=== PATIENT | female | born 1970 | race Hispanic/Latino ===

== ENCOUNTER 2018-07-19 13:31 | Emergency (ER) | payer OTHER ==
--- OUTSIDE RECORDS SUMMARY | 2018-07-19 13:33 | XMS REPORT | Clinical Summary ---
:1970 Author Organization [facility] Address [address] [place] [address] Care Team Providers Name Role Phone Kwabena Blas MD Primary Care Provider Allergies Active Allergy Reactions Severity Noted Date Comments Codeine Palpitations High 11/15/2016 Medications Medication Sig Dispensed Refills Start Date End Date Status atenolol (TENORMIN) 50 MG TK 1 T PO 0 10/28/2016 Active tablet BID fluconazole (DIFLUCAN) 150 0 09/11/2016 Active MG tablet hydroCHLOROthiazide TK 1 T PO QD 2 11/08/2016 Active (HYDRODIURIL) 25 MG tablet traMADol (ULTRAM) 50 mg TK 1 T PO 0 10/25/2016 Active tablet BID Active Problems Problem Noted Date Chest pain 12/10/2016 Abnormal EKG 12/10/2016 Essential hypertension 11/15/2016 Palpitation 11/15/2016 Family History Medical History Relation Name Comments Diabetes Father Hypertension Father No Known Problems Maternal Grandfather No Known Problems Maternal Grandmother Heart failure Mother Hypertension Mother No Known Problems Paternal Grandfather No Known Problems Paternal Grandmother Relation Name Status Comments Brother Alive Father Alive Maternal Grandfather Maternal Grandmother Mother Alive Paternal Grandfather Paternal Grandmother Sister Alive Social History Tobacco Use Types Packs/Day Years Used Date Never Smoker Smokeless Tobacco: Never Used Alcohol Use Drinks/Week oz/Week Comments No Sex Assigned at Date Recorded Not on file Job Start Date Occupation Industry Not on file Not on file Not on file Travel History Travel Start Travel End No recent travel history available. Last Filed Vital Signs Not on file Plan of Treatment Health Maintenance Due Date Last Done Comments CERVICAL CANCER SCREENING 1993 INFLUENZA VACCINE 02/25/2018 Results Not on fileafter 07/18/2017 Insurance Payer Benefit Plan / Group Subscriber ID Type Phone Address AETNA AETNA HMO,POS,EPO, MC/EC xxxxxxxxxx HMO Advance Directives Patient has advance care planning documents on file. For more information, please contact:Facundo Brasher[address] [place] [address]
[2018-07-19] MEDS ORDERED: NA CHLORIDE 0.9% 1,000 ML ONE (15:13)
[2018-07-19 15:34] LABS: Absolute Monocytes 0.7 K/uL (0.1-1.3); Absolute Neutrophil 8.6 K/uL (1.8-8.0); Basophils % 0.6 % (0-1.3); Eosinophils % 0.6 % (0-4.4); Hematocrit 36.9 % (36.0-45.0); Lymphocytes % 24.2 % (15.3-44.8); MCH 26.1 pg (27.0-35.0); MCV 78.4 fL (80-100); MPV 9.3 fL (7.6-11.3); Monocytes % 5.9 % (3.3-12.3); RBC Red Blood Cell Count 4.71 M/uL (3.86-4.86)
[2018-07-19 15:37] LABS: ALT/SGPT 21 U/L (12-78); AST/SGOT 12 U/L (15-37); Albumin 3.3 g/dL (3.4-5.0); Alkaline Phosphatase 77 U/L (45-117); BUN Blood Urea Nitrogen 11 mg/dL (7-18); Bicarbonate 28 mmol/L (21-32); Bilirubin Direct < 0.1 mg/dL (0-0.2); Bilirubin Total 0.3 mg/dL (0.2-1.0); Glucose Level 100 mg/dL (74-106); Lipase 195 U/L (73-393); Potassium 3.1 mmol/L (3.5-5.1); Protein, Total 7.5 g/dL (6.4-8.2); Sodium Level 136 mmol/L (136-145)
[2018-07-19] MEDS ORDERED: KETOROLAC 30 MG/ML INJ ONE (15:52)
[2018-07-19] MEDS ORDERED: POTASSIUM 25 MEQ EFFERV TAB ONE (15:52)
--- NOTE | 2018-07-19 16:58 | RAD REPORT ---
EXAM DESCRIPTION: CT - Stone Protocol - 07/19/2018 3:25 pm CLINICAL HISTORY: Flank pain. FLANK PAIN COMPARISON: No comparisons TECHNIQUE: Axial images were obtained without oral or IV contrast. Lack of contrast limits solid org an and vascular assessment. The [id number] spans the entirety of the system partially obscuring uppermost abdomen and lung bases. Coronal reformatted images were obtained and reviewed. All CT scans are performed using dose optimization technique as appropriate and may include automated exposure control or mA/KV adjustment according to patient size. FINDINGS: The lower lung frost are clear. Imaged portions of the liver and spleen show no suspicious findings on non-contrast imaging. The panc reas and adrenal glands are normal. No pathologic lymphadenopathy in the abdomen or pelvis. No urinary tract stones or obstructive uropathy. No bowel obstruction, free air, free fluid or abscess. Normal appendix noted.Small to moderate fat an d fluid containing umbilical hernia noted. No significant bony abnormality. IMPRESSION: No urinary tract stones or obstructive uropathy. Moderate fat and fluid containing umbilical hernia.
--- NOTE | 2018-07-19 17:35 | ER ---
Nurse's Notes [facility] Name: Danii Linares Age: 47 yrs Sex: Female : 1970 Arrival Date: 07/19/2018 Time: 13:34 Bed 6 Private MD: Noemy Blas F Diagnosis: Low back pain Presentation: 07/19 13:51 Presenting complaint: Child states: She has been having a lot of back pain with la1 "shocks" for the last week. The pain radiates to her stomach. She has had this problem in the past and this is similar, they usually give her tramadol but this feels worse than usual. Transition of care: patient was not received from another setting of care. Onset of symptoms was July 19, 2018. Risk Assessment: Do you want to hurt yourself or someone else? Patient reports no desire to harm self or others. Initial Sepsis Screen: Does the patient meet any 2 criteria? No. Patient's initial sepsis screen is negative. Does the patient have a suspected source of infection? No. Patient's initial sepsis screen is negative. Care prior to arrival: None. 13:51 Method Of Arrival: Ambulatory la1 13:51 Acuity: KARINA 3 la1 Triage Assessment: 14:45 General: Appears in no apparent distress. uncomfortable, Behavior is calm, cooperative, hj appropriate for age. Pain: Complains of pain in back. Musculoskeletal: Circulation, motion, and sensation intact. Capillary refill < 3 seconds. 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 - Social history:: Smoking status: Patient/guardian denies using tobacco. - Ebola Screening: : No symptoms or risks identified at this time. Screenin:45 Abuse screen: Denies threats or abuse. Denies injuries from another. Nutritional hj screening: No deficits noted. Tuberculosis screening: No symptoms or risk factors identified. Fall Risk None identified. Vital Signs: 13:54 Pulse 81; Resp 16; Temp 97.5; Pulse Ox 98% on R/A; Weight 117.93 kg; Height 5 ft. 0 in. la1 (152.40 cm); 13:56 BP 131 / 77; la1 16:29 BP 126 / 74; Pulse 80; Resp 18; Pulse Ox 99% on R/A; hj 16:57 BP 130 / 70; Pulse 78; Resp 18; Pulse Ox 100% on R/A; hj 17:56 BP 128 / 68; Pulse 75; Resp 18; Pulse Ox 99% on R/A; hj 13:54 Body Mass Index 50.78 (117.93 kg, 152.40 cm) la1 ED Course: 13:34 Patient arrived in ED. mr 13:34 Noemy Blas MD is Private Physician. mr 13:53 Triage completed. la1 13:53 Arm band placed on right wrist. la1 14:39 Mika Mckeon, SAWYER is Primary Nurse. hj 14:42 Aguilar Lau NP is PHCP. pm1 14:42 Ari Addison MD is Attending Physician. pm1 14:45 Patient has correct armband on for positive identification. Placed in gown. Bed in low hj position. Call light in reach. Side rails up X 1. Adult w/ patient. 14:47 Urine collected: clean catch specimen, cloudy, dane colored. jb1 15:06 Inserted saline lock: 22 gauge in left antecubital area, using aseptic technique. Blood hj collected. 15:25 CT Stone Protocol In Process Unspecified. EDMS 17:56 No provider procedures requiring assistance completed. IV discontinued, intact, hj bleeding controlled, No redness/swelling at site. Pressure dressing applied. Administered Medications: 15:06 Drug: NS 0.9% 1000 ml Route: IV; Rate: 1000 ml; Site: left antecubital; hj 17:30 Follow up: IV Status: Completed infusion; IV Intake: 1000ml hj 15:40 Drug: Potassium Effervescent Tablet 50 mEq Route: PO; hj 16:57 Follow up: Response: No adverse reaction hj 15:40 Drug: TORadol 30 mg Route: IVP; Site: left antecubital; 16:57 Follow up: Response: No adverse reaction; Pain is decreased Intake: 17:30 IV: 1000ml; Total: 1000ml. Outcome: 17:34 Discharge ordered by . pm1 17:56 Discharged to home ambulatory, with family. 17:56 Condition: stable 17:56 Discharge instructions given to patient, family, Instructed on discharge instructions, follow up and referral plans. medication usage, Demonstrated understanding of instructions, follow-up care, medications, Prescriptions given X 2. 17:57 Patient left the ED. Signatures: Dispatcher [employer] EDMS Krishna López1 Olive Schaeffer mr Sohan Gonzalez RN RN la1 Mika Mckeon RN RN Aguilar Sierra, INSPECTOR REPAIRER INSPECTOR REPAIRER pm1
--- NOTE | 2018-07-19 17:35 | EDPHYS ---
Physician Documentation [facility] Name: Danii Linares Age: 47 yrs Sex: Female : 1970 Arrival Date: 07/19/2018 Time: 13:34 Bed 6 Private MD: Noemy Blas F ED Physician Ari Addison HPI: 07/19 15:15 This 47 yrs old Female presents to ER via Ambulatory with complaints of Back pm1 Pain. 15:15 The patient presents with pain. The symptoms are located in the right low back. Onset: pm1 The symptoms/episode began/occurred 2 week(s) ago. The pain radiates to the right lower quadrant. Associated signs and symptoms: Pertinent negatives: chest pain, dysuria, fever, headache, nausea, numbness, tingling, weakness. The problem was sustained without known cause. Modifying factors: The patient symptoms are alleviated by nothing, the patient symptoms are aggravated by bending, movement. Severity of symptoms: in the emergency department the symptoms are actually worse. The patient has experienced similar episodes in the past, multiple times, but today's symptoms are worse, more painful. The patient has not recently seen a physician. 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 - Social history:: Smoking status: Patient/guardian denies using tobacco. - Ebola Screening: : No symptoms or risks identified at this time. ROS: 15:15 Constitutional: Negative for fever, chills, and weight loss, Eyes: Negative for injury, pm1 pain, redness, and discharge, ENT: Negative for injury, pain, and discharge, Neck: Negative for injury, pain, and swelling, Cardiovascular: Negative for chest pain, palpitations, and edema, Respiratory: Negative for shortness of breath, cough, wheezing, and pleuritic chest pain, Abdomen/GI: Negative for abdominal pain, nausea, vomiting, diarrhea, and constipation. 15:15 : Negative for injury, bleeding, discharge, and swelling, MS/Extremity: Negative for injury and deformity, Skin: Negative for injury, rash, and discoloration, Neuro: Negative for headache, weakness, numbness, tingling, and seizure. 15:15 Back: Positive for pain with movement, of the right low back, pain. Exam: 15:15 Constitutional: This is a well developed, well nourished patient who is awake, alert, pm1 and in no acute distress. Head/Face: Normocephalic, atraumatic. Eyes: Pupils equal round and reactive to light, extra-ocular motions intact. Lids and lashes normal. Conjunctiva and sclera are non-icteric and not injected. Cornea within normal limits. Periorbital areas with no swelling, redness, or edema. ENT: Nares patent. No nasal discharge, no septal abnormalities noted. Tympanic membranes are normal and external auditory canals are clear. Oropharynx with no redness, swelling, or masses, exudates, or evidence of obstruction, uvula midline. Mucous membranes moist. Neck: Trachea midline, no thyromegaly or masses palpated, and no cervical lymphadenopathy. Supple, full range of motion without nuchal rigidity, or vertebral point tenderness. No Meningismus. Chest/axilla: Normal chest wall appearance and motion. Nontender with no deformity. No lesions are appreciated. Cardiovascular: Regular rate and rhythm with a normal S1 and S2. No gallops, murmurs, or rubs. Normal PMI, no JVD. No pulse deficits. Respiratory: Lungs have equal breath sounds bilaterally, clear to auscultation and percussion. No rales, rhonchi or wheezes noted. No increased work of breathing, no retractions or nasal flaring. Abdomen/GI: Soft, non-tender, with normal bowel sounds. No distension or tympany. No guarding or rebound. No evidence of tenderness throughout. 15:15 Skin: Warm, dry with normal turgor. Normal color with no rashes, no lesions, and no evidence of cellulitis. MS/ Extremity: Pulses equal, no cyanosis. Neurovascular intact. Full, normal range of motion. 15:15 Back: pain, of the right low back, ROM is painful, with rotation to the right, with rotation to the left, with flexion, with extension, normal spinal alignment noted, vertebral tenderness, is not appreciated. 15:15 Neuro: Orientation: is normal, Motor: is normal, moves all fours, Gait: is steady, at a normal pace, without difficulty. Vital Signs: 13:54 Pulse 81; Resp 16; Temp 97.5; Pulse Ox 98% on R/A; Weight 117.93 kg; Height 5 ft. 0 in. la1 (152.40 cm); 13:56 BP 131 / 77; la1 16:29 BP 126 / 74; Pulse 80; Resp 18; Pulse Ox 99% on R/A; hj 16:57 BP 130 / 70; Pulse 78; Resp 18; Pulse Ox 100% on R/A; hj 17:56 BP 128 / 68; Pulse 75; Resp 18; Pulse Ox 99% on R/A; hj 13:54 Body Mass Index 50.78 (117.93 kg, 152.40 cm) la1 MDM: 14:42 Patient medically screened. pm1 17:33 Data reviewed: vital signs. Data interpreted: Pulse oximetry: on room air is 100 %. pm1 Interpretation: normal. Counseling: I had a detailed discussion with the patient and/or guardian regarding: the historical points, exam findings, and any diagnostic results supporting the discharge/admit diagnosis, lab results, radiology results, the need for outpatient follow up, to return to the emergency department if symptoms worsen or persist or if there are any questions or concerns that arise at home. 07/19 14:50 Order name: Urine Dipstick--Ancillary (enter results) ag 07/19 14:50 Order name: Urine --Ancillary (enter results) ag 07/19 14:52 Order name: Basic Metabolic Panel; Complete Time: 15:39 pm1 07/19 14:52 Order name: CBC with Diff; Complete Time: 15:39 pm1 07/19 14:52 Order name: Creatinine for Radiology; Complete Time: 15:39 pm1 07/19 14:52 Order name: Hepatic Function; Complete Time: 15:39 pm1 07/19 14:52 Order name: CT Stone Protocol; Complete Time: 17:07 pm1 07/19 14:52 Order name: Lipase; Complete Time: 15:39 pm1 07/19 14:52 Order name: IV Saline Lock; Complete Time: 15:06 pm1 07/19 14:52 Order name: Labs collected and sent; Complete Time: 15:06 pm1 Administered Medications: 15:06 Drug: NS 0.9% 1000 ml Route: IV; Rate: 1000 ml; Site: left antecubital; hj 17:30 Follow up: IV Status: Completed infusion; IV Intake: 1000ml 15:40 Drug: Potassium Effervescent Tablet 50 mEq Route: PO; hj 16:57 Follow up: Response: No adverse reaction hj 15:40 Drug: TORadol 30 mg Route: IVP; Site: left antecubital; hj 16:57 Follow up: Response: No adverse reaction; Pain is decreased Disposition: 07/19/18 17:34 Discharged to Home. Impression: Low back pain. - Condition is Stable. - Discharge Instructions: Back Pain, Adult, Musculoskeletal Pain. - Prescriptions for Naprosyn 500 mg Oral Tablet - take 1 tablet by ORAL route 2 times per day As needed take with food; 30 tablet. Cyclobenzaprine 10 mg Oral Tablet - take 1 tablet by ORAL route every 8 hours As needed; 30 tablet. - Medication Reconciliation Form, Thank You Letter, Antibiotic Education, Prescription Opioid Use form. - Follow up: Emergency Department; When: As needed; Reason: Worsening of condition. Follow up: Private Physician; When: 2 - 3 days; Reason: Recheck today's complaints, Continuance of care, Re-evaluation by your physician. - Problem is new. - Symptoms have improved. Signatures: Dispatcher [employer] [facility] Sohan Gonzalez RN RN la1 Mika Mckeon RN RN Aguilar Lau, MARIYA BATTING MACHINE OPERATOR INSULATION pm1 Corrections: (The following items were deleted from the chart) 17:57 17:34 07/19/2018 17:34 Discharged to Home. Impression: Low back pain. Condition is hj Stable. Forms are Medication Reconciliation Form, Thank You Letter, Antibiotic Education, Prescription Opioid Use. Follow up: Emergency Department; When: As needed; Reason: Worsening of condition. Follow up: Private Physician; When: 2 - 3 days; Reason: Recheck today's complaints, Continuance of care, Re-evaluation by your physician. Problem is new. Symptoms have improved. pm1
[2018-07-19 18:20] VITALS: TEMP 97.5
[2018-07-19 18:26] VITALS: BP 128/68; O2SAT 99
[2018-07-19 20:37] LABS: Urine Blood TRACE (NEG); Urine Glucose NEGATIVE (NEG); Urine Protein NEGATIVE (NEG)
== END 2018-07-19 17:57 | disposition home or self-care (01) ==
LOC: ER 13:31
DX: M54.5 Low back pain (principal); I10 Essential (primary) hypertension; Z88.5 Allergy status to narcotic agent
CPT/HCPCS: 36415; 74176; 76377; 80048; 80076; 81003; 81025; 83690; 85025; 96361; 96374; 99284; J7030

== ENCOUNTER 2018-08-24 15:01 | Emergency (ER) | payer BC ==
--- OUTSIDE RECORDS SUMMARY | 2018-08-24 15:03 | XMS REPORT | Clinical Summary ---
:1970 Author Organization [facility] Address [address] [place] [address] Care Team Providers Name Role Phone Kwabena [...] INFLUENZA VACCINE 02/25/2018 Results Not on fileafter 08/23/2017 Insurance Payer Benefit Plan / Group Subscriber ID Type Phone Address AETNA AETNA HMO,POS,EPO, MC/EC xxxxxxxxxx HMO Advance Directives Patient has advance care planning documents on file. For more information, please contact:Facundo Brasher[address] [place] [address]
[2018-08-24 15:49] LABS: Absolute Lymphocytes (CBC) 2.3 K/uL (0.7-4.9); Absolute Monocytes 0.5 K/uL (0.1-1.3); Absolute Neutrophil 7.7 K/uL (1.8-8.0); Basophils % 0.6 % (0-1.3); Eosinophils % 1.1 % (0-4.4); Hematocrit 38.8 % (36.0-45.0); Lymphocytes % 21.7 % (15.3-44.8); MPV 9.2 fL (7.6-11.3); Monocytes % 4.9 % (3.3-12.3); Protime INR 1.04; RBC Red Blood Cell Count 4.88 M/uL (3.86-4.86)
[2018-08-24 15:58] LABS: ALT/SGPT 22 U/L (12-78); AST/SGOT 15 U/L (15-37); Albumin 3.5 g/dL (3.4-5.0); Alkaline Phosphatase 80 U/L (45-117); BUN Blood Urea Nitrogen 10 mg/dL (7-18); Bicarbonate 29 mmol/L (21-32); Bilirubin Direct < 0.1 mg/dL (0-0.2); Bilirubin Total 0.3 mg/dL (0.2-1.0); Glucose Level 117 mg/dL (74-106); Lipase 177 U/L (73-393); Magnesium 1.8 mg/dL (1.8-2.4); NT PRO-BNP 47 pg/mL (<125); Potassium 3.3 mmol/L (3.5-5.1); Protein, Total 7.8 g/dL (6.4-8.2); Sodium Level 139 mmol/L (136-145); Troponin (Emerg Dept Use Only) < 0.02 ng/mL (0.0-0.045)
[2018-08-24 16:30] LABS: Urine Blood TRACE (NEG); Urine Glucose NEGATIVE (NEG); Urine Protein NEGATIVE (NEG); Urine Specific Gravity <1.005 (1.005-1.030); Urine pH 5.5 (5.0-7.0)
--- NOTE | 2018-08-24 16:35 | RAD REPORT ---
EXAM DESCRIPTION: RAD - Chest Single View - 08/24/2018 4:29 pm CLINICAL HISTORY: CHEST PAIN Chest pain. COMPARISON: Chest Pa And Lat (2 Views) dated 07/31/2017; CHEST SINGLE VIEW dated 12/23/2014; CHEST SING LE VIEW dated 12/16/2014; CHEST PA AND LAT 2 VIEW dated 03/25/2013 FINDINGS: Portable technique limits examination quality. The lungs are grossly clear. The heart is normal in size. No displaced fractures. IMPRESSION: No acute intrathoracic process suspected.
--- NOTE | 2018-08-24 17:09 | EDPHYS ---
Physician Documentation [facility] Name: Danii Linares Age: 48 yrs Sex: Female : 1970 Arrival Date: 08/24/2018 Time: 15:03 Bed 18 Private MD: Noemy Blas F ED Physician Simin Brian HPI: 08/24 15:46 This 48 yrs old Female presents to ER via Wheelchair with complaints of Chest pm1 Pain, Back Pain. 15:46 The patient or guardian reports chest pain that is located primarily in the mid-sternal pm1 area. Onset: 3 day(s) ago. The pain does not radiate. Associated signs and symptoms: Pertinent negatives: abdominal pain, cough, diaphoresis, dizziness, headache, nausea, palpitations, shortness of breath, vomiting. The chest pain is described as burning. Duration: The patient or guardian reports a single episode. Modifying factors: The symptoms are alleviated by nothing. the symptoms are aggravated by eating. Severity of pain: in the emergency department the pain is actually worse. The patient has not experienced similar symptoms in the past. The patient has not recently seen a physician. Patient also present with right upper back tenderness for 3 days. COMPLIANCE CONSULTANT: 17:29 LMP unknown mg2 Historical: - Allergies: 15:05 Codeine; sv - Home Meds: 15:11 atenolol 25 mg Oral tab 1 tab 2 times per day [Active]; Prilosec 20 mg Oral cpDR 1 cap tw2 once daily [Active]; tramadol 100 mg Oral Tb24 1 tab once daily [Active]; hydrochlorothiazide 25 mg Oral tab 1 tab once daily [Active]; - PMHx: 15:05 Hypertension; sv - PSHx: 15:05 Cholecystectomy; sv - Immunization history:: Adult Immunizations. - Social history:: Smoking status: . - Ebola Screening: : Patient denies travel to an Ebola-affected area in the 21 days before illness onset. ROS: 15:46 Constitutional: Negative for fever, chills, and weight loss, Eyes: Negative for injury, pm1 pain, redness, and discharge, ENT: Negative for injury, pain, and discharge, Neck: Negative for injury, pain, and swelling. 15:46 Respiratory: Negative for shortness of breath, cough, wheezing, and pleuritic chest pain, Abdomen/GI: Negative for abdominal pain, nausea, vomiting, diarrhea, and constipation. 15:46 : Negative for injury, bleeding, discharge, and swelling, MS/Extremity: Negative for injury and deformity, Skin: Negative for injury, rash, and discoloration, Neuro: Negative for headache, weakness, numbness, tingling, and seizure. 15:46 Cardiovascular: Positive for chest pain, Negative for edema, orthopnea, palpitations. 15:46 Back: Positive for of the right scapular area, pain. Exam: 15:46 Constitutional: This is a well developed, well nourished patient who is awake, alert, pm1 and in no acute distress. Head/Face: Normocephalic, atraumatic. Eyes: Pupils equal round and reactive to light, extra-ocular motions intact. Lids and lashes normal. Conjunctiva and sclera are non-icteric and not injected. Cornea within normal limits. Periorbital areas with no swelling, redness, or edema. ENT: Nares patent. No nasal discharge, no septal abnormalities noted. Tympanic membranes are normal and external auditory canals are clear. Oropharynx with no redness, swelling, or masses, exudates, or evidence of obstruction, uvula midline. Mucous membranes moist. Neck: Trachea midline, no thyromegaly or masses palpated, and no cervical lymphadenopathy. Supple, full range of motion without nuchal rigidity, or vertebral point tenderness. No Meningismus. Chest/axilla: Normal chest wall appearance and motion. Nontender with no deformity. No lesions are appreciated. Cardiovascular: Regular rate and rhythm with a normal S1 and S2. No gallops, murmurs, or rubs. Normal PMI, no JVD. No pulse deficits. Respiratory: Lungs have equal breath sounds bilaterally, clear to auscultation and percussion. No rales, rhonchi or wheezes noted. No increased work of breathing, no retractions or nasal flaring. 15:46 Skin: Warm, dry with normal turgor. Normal color with no rashes, no lesions, and no evidence of cellulitis. MS/ Extremity: Pulses equal, no cyanosis. Neurovascular intact. Full, normal range of motion. 15:46 Abdomen/GI: Inspection: obese Bowel sounds: normal, Palpation: abdomen is soft and non-tender, in all quadrants. 15:46 Back: pain, that is mild, of the right scapular area, tenderness, normal spinal alignment noted, vertebral tenderness, is not appreciated. 15:46 Neuro: Orientation: is normal, Motor: is normal, moves all fours, Gait: is steady, at a normal pace, without difficulty. Vital Signs: 15:05 BP 135 / 76; Pulse 96; Resp 20; Temp 97.4; Pulse Ox 100% ; Weight 113.4 kg; Height 5 sv ft. 0 in. (152.40 cm); Pain 4/10; 16:15 BP 117 / 55; Pulse 86; Resp 17; Pulse Ox 96% on R/A; tw2 17:27 BP 120 / 76; Pulse 89; Resp 18; Pulse Ox 100% on R/A; Pain 0/10; mg2 15:05 Body Mass Index 48.83 (113.40 kg, 152.40 cm) sv MDM: 15:12 Patient medically screened. pm1 15:50 Data reviewed: vital signs. pm1 17:07 Counseling: I had a detailed discussion with the patient and/or guardian regarding: the pm1 historical points, exam findings, and any diagnostic results supporting the discharge/admit diagnosis, lab results, radiology results, the need for outpatient follow up, to return to the emergency department if symptoms worsen or persist or if there are any questions or concerns that arise at home. 08/24 15:17 Order name: Basic Metabolic Panel; Complete Time: 16:00 pm08/24 15:17 Order name: CBC with Diff; Complete Time: 16:00 pm08/24 15:17 Order name: LFT's; Complete Time: 16:00 pm08/24 15:17 Order name: Magnesium; Complete Time: 16:00 pm08/24 15:17 Order name: NT PRO-BNP; Complete Time: 16:00 pm08/24 15:17 Order name: PT-INR; Complete Time: 16:00 pm08/24 15:17 Order name: Troponin (emerg Dept Use Only); Complete Time: 16:00 pm08/24 15:17 Order name: XRAY Chest (1 view); Complete Time: 16:38 pm08/24 15:17 Order name: EKG; Complete Time: 15:17 pm08/24 15:17 Order name: Cardiac monitoring; Complete Time: 15:17 pm1 08/24 15:17 Order name: Lipase; Complete Time: 16:00 pm1 08/24 15:55 Order name: Urine Dipstick--Ancillary (enter results) bd 08/24 15:55 Order name: Urine Dipstick-Ancillary; Complete Time: 16:36 EDMS 08/24 15:17 Order name: EKG - Nurse/Tech; Complete Time: 15:17 pm1 08/24 15:17 Order name: IV Saline Lock; Complete Time: 16:15 pm1 08/24 15:17 Order name: Labs collected and sent; Complete Time: 15:33 pm1 08/24 15:17 Order name: O2 Per Protocol; Complete Time: 15:17 pm1 08/24 15:17 Order name: O2 Sat Monitoring; Complete Time: 15:18 pm1 08/24 15:18 Order name: Urine Dipstick-Ancillary (obtain specimen); Complete Time: 16:15 tw2 08/24 15:18 Order name: Urine Test (obtain specimen); Complete Time: 16:15 tw2 Administered Medications: 17:20 Drug: GI Cocktail without - (Maalox Suspension 30 ml, Lidocaine Liquid 2 % 15 mg2 ml) Route: PO; 17:27 Follow up: Response: No adverse reaction; Medication administered at discharge. mg2 Disposition: 17:44 Co-signature as Attending Physician, Simin Brian MD. ma2 Disposition: 08/24/18 17:08 Discharged to Home. Impression: Chest pain, unspecified. - Condition is Stable. - Discharge Instructions: Nonspecific Chest Pain. - Prescriptions for Pepcid 20 mg Oral Tablet - take 1 tablet by ORAL route every 12 hours for 10 days; 20 tablet. - Medication Reconciliation Form, Thank You Letter form. - Follow up: Emergency Department; When: As needed; Reason: Worsening of condition. Follow up: Private Physician; When: 2 - 3 days; Reason: Recheck today's complaints, Continuance of care, Re-evaluation by your physician. - Problem is new. - Symptoms have improved. Signatures: Dispatcher [employer] EDDenise Miguel RN RN sv Marinas, Patrick, MARIYA SAP BW CONSULTANT pm1 Rosario Herndon RN RN 2 Simin Brian MD MD ma2 Gardose, Db, RN RN mg2 Corrections: (The following items were deleted from the chart) 17:29 17:08 08/24/2018 17:08 Discharged to Home. Impression: Chest pain, unspecified. mg2 Condition is Stable. Forms are Medication Reconciliation Form, Thank You Letter, Antibiotic Education, Prescription Opioid Use. Follow up: Emergency Department; When: As needed; Reason: Worsening of condition. Follow up: Private Physician; When: 2 - 3 days; Reason: Recheck today's complaints, Continuance of care, Re-evaluation by your physician. Problem is new. Symptoms have improved. pm1
--- NOTE | 2018-08-24 17:09 | ER ---
Nurse's Notes [facility] Name: Danii Linares Age: 48 yrs Sex: Female : 1970 Arrival Date: 08/24/2018 Time: 15:03 Bed 18 Private MD: Noemy Blas F Diagnosis: Chest pain, unspecified Presentation: 08/24 15:04 Presenting complaint: Patient states: chest pressure, neck pain and right upper back sv pain x 2 days. Transition of care: patient was not received from another setting of care. Onset of symptoms was August 22, 2018. Care prior to arrival: None. 15:04 Method Of Arrival: Wheelchair sv 15:04 Acuity: KARINA 3 sv 15:10 Risk Assessment: Do you want to hurt yourself or someone else? Patient reports no tw2 desire to harm self or others. Initial Sepsis Screen: Does the patient meet any 2 criteria? No. Patient's initial sepsis screen is negative. Does the patient have a suspected source of infection? No. Patient's initial sepsis screen is negative. Triage Assessment: 15:06 General: Appears in no apparent distress. uncomfortable, obese, Behavior is calm, sv cooperative, appropriate for age. Pain: Complains of pain in chest and neck and right upper back. Neuro: Level of Consciousness is awake, alert, obeys commands, Oriented to person, place, time, situation, Gait is steady. Respiratory: Respiratory effort is even, unlabored, Respiratory pattern is regular, symmetrical. PACKAGER HEAD: 17:29 LMP unknown mg2 Historical: - Allergies: 15:05 Codeine; sv - Home Meds: 15:11 atenolol 25 mg Oral tab 1 tab 2 times per day [Active]; Prilosec 20 mg Oral cpDR 1 cap tw2 once daily [Active]; tramadol 100 mg Oral Tb24 1 tab once daily [Active]; hydrochlorothiazide 25 mg Oral tab 1 tab once daily [Active]; - PMHx: 15:05 Hypertension; sv - PSHx: 15:05 Cholecystectomy; sv - Immunization history:: Adult Immunizations. - Social history:: Smoking status: . - Ebola Screening: : Patient denies travel to an Ebola-affected area in the 21 days before illness onset. Screenin:10 Abuse screen: Denies threats or abuse. Nutritional screening: No deficits noted. tw2 Tuberculosis screening: No symptoms or risk factors identified. Fall Risk None identified. Assessment: 15:34 General: Appears in no apparent distress. obese, Behavior is calm, cooperative, tw2 appropriate for age. Pain: Complains of pain in mid-sternal area Pain radiates to back. Pain: Pain began 2-3 days ago. Neuro: Level of Consciousness is awake, alert, obeys commands, Oriented to person, place, time, situation. Cardiovascular: Heart tones S1 S2 Patient's skin is warm and dry. Respiratory: Airway is patent Respiratory effort is even, unlabored, Respiratory pattern is regular, symmetrical, Breath sounds are clear bilaterally. GI: Abdomen is round obese, Bowel sounds present X 4 quads. : No signs and/or symptoms were reported regarding the genitourinary system. EENT: No signs and/or symptoms were reported regarding the EENT system. Derm: No signs and/or symptoms reported regarding the dermatologic system. Musculoskeletal: Range of motion: intact in all extremities. 16:17 Reassessment: Patient appears in no apparent distress at this time. No changes from tw2 previously documented assessment. Patient and/or family updated on plan of care and expected duration. Pain level reassessed. Patient is alert, oriented x 3, equal unlabored respirations, skin warm/dry/pink. 17:28 Reassessment: Patient appears in no apparent distress at this time. Patient and/or mg2 family updated on plan of care and expected duration. Pain level reassessed. Vital Signs: 15:05 BP 135 / 76; Pulse 96; Resp 20; Temp 97.4; Pulse Ox 100% ; Weight 113.4 kg; Height 5 sv ft. 0 in. (152.40 cm); Pain 4/10; 16:15 BP 117 / 55; Pulse 86; Resp 17; Pulse Ox 96% on R/A; tw2 17:27 BP 120 / 76; Pulse 89; Resp 18; Pulse Ox 100% on R/A; Pain 0/10; mg2 15:05 Body Mass Index 48.83 (113.40 kg, 152.40 cm) sv ED Course: 15:03 Patient arrived in ED. rg4 15:03 Noemy Blas MD is Private Physician. rg4 15:04 Triage completed. sv 15:06 Arm band placed on. sv 15:10 Rosario Herndon, SAWYER is Primary Nurse. tw2 15:11 Bed in low position. Call light in reach. groundwater monitoring technician on. Pulse ox on. NIBP on. tw2 15:11 Patient maintains SpO2 saturation greater than 95% on room air. tw2 15:12 Aguilar Lau NP is PHCP. pm1 15:12 Simin Brian MD is Attending Physician. pm1 15:21 EKG done, by technology specialist. reviewed by Aguilar Lau NP. sm3 15:31 Missed attempt(s): 22 gauge in right antecubital area. Bleeding controlled, band aid tw2 applied, catheter tip intact. Missed attempt(s): 22 gauge in left antecubital area. blood collected, notified SAWYER Baig of need for iv at this time.. Bleeding controlled, band aid applied, catheter tip intact. 15:42 Inserted saline lock: 22 gauge in left antecubital area, using aseptic technique. iw 16:20 Urine Dipstick--Ancillary (enter results) Sent. tw2 16:21 Report given to SAWYER Tellez. tw2 16:30 XRAY Chest (1 view) In Process Unspecified. EDMS 17:28 No provider procedures requiring assistance completed. IV discontinued, intact, mg2 bleeding controlled, No redness/swelling at site. Pressure dressing applied. Administered Medications: 17:20 Drug: GI Cocktail without - (Maalox Suspension 30 ml, Lidocaine Liquid 2 % 15 mg2 ml) Route: PO; 17:27 Follow up: Response: No adverse reaction; Medication administered at discharge. mg2 Outcome: 17:08 Discharge ordered by . pm1 17:28 Discharged to home ambulatory, with family. mg2 17:28 Condition: stable 17:28 Discharge instructions given to patient, family, Instructed on discharge instructions, follow up and referral plans. medication usage, Demonstrated understanding of instructions, follow-up care, medications, Prescriptions given X 1. 17:29 Patient left the ED. mg2 Signatures: Dispatcher [employer] EDMS Denise Carlson RN RN Safia Meyer RN RN iw Aguilar Lau NP FILM PROCESSING SHIFT SUPERVISOR pm1 Rosario Herndon RN RN 2 Parisa Cooley 4 Db Narvaez RN RN mg2 Jennifer Hoffman 3 Corrections: (The following items were deleted from the chart) 15:07 15:05 Pulse 96bpm; Resp 20bpm; Pulse Ox 100%; Temp 97.4F; 113.4 kg; Height 5 ft. 0 in.; sv BMI: 48.8; Pain 4/10; sv
[2018-08-24] MEDS ORDERED: MAGNE/ALUM HYDROXD 30 ML UCUP ONE (17:24)
[2018-08-24] MEDS ORDERED: LIDOCAINE VISCOUS 2% SOLN 15 ML UDC ONE (17:24)
--- NOTE | 2018-08-24 20:49 | EKG ---
Test Date: 2018-08-24 Test Time: 15:16:11 Grant Specialist: LAURA MEASUREMENT RESULTS: Intervals: Rate: 90 CA: 168 QRSD: 82 QT: 348 QTc: 425 [place]: P: 25 CA: 168 QRS: 35 T: 66 INTERPRETIVE STATEMENTS: Normal sinus rhythm Nonspecific T wave abnormality Abnormal ECG Compared to ECG 12/14/2015 09:18:50 T-wave abnormality now present ST (T wave) deviation no longer present Possible ischemia no longer present Electronically Signed On 08-24-18 20:47:39 MATERIALS TECHNICIAN by Ben Martinez
[2018-08-24 23:53] VITALS: TEMP 97.4
[2018-08-24 23:55] VITALS: BP 120/76; O2SAT 100
== END 2018-08-24 17:29 | disposition home or self-care (01) ==
LOC: ER 15:01
DX: R07.9 Chest pain, unspecified (principal); M54.9 Dorsalgia, unspecified; I10 Essential (primary) hypertension; Z88.5 Allergy status to narcotic agent
CPT/HCPCS: 36415; 71045; 80048; 80076; 81003; 83690; 83735; 83880; 84484; 85025; 85610; 93005; 99285

== ENCOUNTER 2019-07-07 17:03 | Emergency (ER) | payer BC ==
--- OUTSIDE RECORDS SUMMARY | 2019-07-07 17:05 | XMS REPORT ---
:1970 Author [facility] Address [address] [place] [address] [address] [place] [address] Care Team Providers Name Role Phone Unavailable Unavailable Unavailable Problems This patient has no known problems. Allergies, Adverse Reactions, Alerts This patient has no known allergies or adverse reactions. Medications This patient has no known medications.
--- OUTSIDE RECORDS SUMMARY | 2019-07-07 17:05 | XMS REPORT | Summary of Care ---
:1970 Author Organization [facility] Address [address] [place] [address] Care Team Providers Name Role Phone RoopaNoemy garcía Monserratmayo Primary Care Provider Reason for Visit Radiology Services (Routine) Status Reason Specialty Diagnoses / Referred By Referred To Procedures Contact Contact New Request Diagnostic Diagnoses Abnormal mammogram R92.8 (ICD-10-CM) - Abnormal mammogram Ta, Radiology Procedures BI ULTRASOUND BREAST LIMITED RIGHT BI ULTRASOUND BREAST COMPLETE RIGHT CHG US BREAST UNI REAL TIME WITH IMAGE COMPLETE [id number] - BI ULTRASOUND BREAST COMPLETE RIGHT [id number] - CHG US BREAST UNI REAL TIME WITH [place] [address] Encounter Details Date Type Department Care Team Description 02/24/2019 Hospital Encounter [facility] Radiology Arrived [place] [facility] [address] [place] [address] [address] [place] [address] [place] [id number] Allergies Not on Filedocumented as of this encounter (statuses as of 02/25/2019) Medications Not on filedocumented as of this encounter (statuses as of 02/25/2019) Active Problems Not on filedocumented as of this encounter (statuses as of 02/25/2019) Social History Tobacco Use Types Packs/Day Years Used Date Never Assessed Sex Assigned at Date Recorded Not on file Job Start Date Occupation Industry Not on file Not on file Not on file Travel History Travel Start Travel End No recent travel history available. documented as of this encounter Last Filed Vital Signs Not on filedocumented in this encounter Plan of Treatment Health Maintenance Due Date Last Done Comments DTaP,Tdap,and Td Vaccines (1 - 1991 Tdap) PAP SMEAR 1993 MAMMOGRAM 2012 INFLUENZA VACCINE 03/28/2019 PNEUMOCOCCAL 0-64 YEARS COMBINED Aged Out No longer eligible based on SERIES patient's age to complete this topic documented as of this encounter Procedures Procedure Name Priority Date/Time Associated Comments Diagnosis BI ULTRASOUND BREAST Routine 02/24/2019 10:25 AM Abnormal mammogram Results for this LIMITED RIGHT CDT procedure are in the results section. documented in this encounter Results BI ULTRASOUND BREAST LIMITED RIGHT (02/24/2019 10:25 AM CDT) Specimen Narrative Performed At Examination: PACS BI ULTRASOUND BREAST LIMITED RIGHT History: Patient is 48 year old and is seen for:Abnormal mammogram. No relevant family history has been documented for this patient. No relevant hormone history has been documented for this patient. No relevant surgical history has been documented for this patient. No relevant medical history has been documented for this patient. Comparisons : None available Comparison made with 02/15/2019 the mammographic study done at [facility]. HISTORY:Abnormal mammogram at an outside facility. TECHNIQUE: Retroareolar/periareolar regions of the right breast were evaluated in radial/antiradial/sagittal/coronal planes both by the technologist and by me. Female technologist was present in the room during all imaging evaluations. FINDINGS: Slightly dilated retroareolar ducts were detected. There is slightly irregular shaped 6 x 3 mm cyst noted at 7:00 1 cm from the nipple.. CONCLUSIONS: No solid masses detected. Small cyst at 7:00 in the right breast. Annual bilateral mammography evaluation is appropriate. ACR classification: Category II. Recommendation: Annual mammographic follow-up - Right BI-RADS Category: Right 2 - Benign Performing Organization Address City/State/Zipcode Phone Number PACS documented in this encounter Visit Diagnoses Diagnosis Abnormal mammogram Abnormal mammogram, unspecified documented in this encounter Insurance Payer Benefit Plan Subscriber ID Effective Dates Phone Address Type / Group BC [facility] [id number] 2018-Presen [phone] [address] PPO/POS [place] - OUT OF t 7 [id number] [place] [address] (Work) [id number] documented as of this encounter
--- NOTE | 2019-07-07 17:52 | RAD REPORT ---
EXAM DESCRIPTION: RAD - Chest Pa And Lat (2 Views) - 07/07/2019 5:45 pm CLINICAL HISTORY: right back/chest pain Chest pain. COMPARISON: Chest Single View dated 08/24/2018; Chest Pa And Lat (2 Views) dated 07/31/2017; CHEST SING LE VIEW dated 12/23/2014; CHEST SINGLE VIEW dated 12/16/2014 FINDINGS: Small calcified granuloma is present in the right upper lobe. The lungs are otherwise ricardo r. The heart is normal in size. No displaced fractures. IMPRESSION: No acute or concerning finding suspected.
[2019-07-07] MEDS ORDERED: KETOROLAC 30 MG/ML INJ ONE (18:20)
[2019-07-07] MEDS ORDERED: CYCLOBENZAPRINE 10 MG TAB ONE (18:20)
--- NOTE | 2019-07-07 18:31 | ER ---
Nurse's Notes [facility] Name: Danii Linares Age: 48 yrs Sex: Female : 1970 Arrival Date: 07/07/2019 Time: 17:07 Bed 27 Private MD: Diagnosis: Myalgia;Upper back pain - right scapular area Presentation: 07/07 17:12 Presenting complaint: Right upper back pain that radiates to right upper chest x 1 hb week. Pain is aggravated by use of right arm, especially when mopping or doing dishes. Transition of care: patient was not received from another setting of care. Onset of symptoms was June 30, 2019. Risk Assessment: Do you want to hurt yourself or someone else? Patient reports no desire to harm self or others. Initial Sepsis Screen: Does the patient meet any 2 criteria? No. Patient's initial sepsis screen is negative. Does the patient have a suspected source of infection? No. Patient's initial sepsis screen is negative. Care prior to arrival: None. 17:12 Method Of Arrival: Ambulatory hb 17:12 Acuity: KARINA 4 hb Triage Assessment: 17:15 General: Behavior is calm, cooperative. tr5 Historical: - Allergies: 17:14 Codeine; hb - Home Meds: 17:14 atenolol 25 mg Oral tab 1 tab 2 times per day [Active]; hydrochlorothiazide 25 mg Oral hb tab 1 tab once daily [Active]; Prilosec 20 mg Oral cpDR 1 cap once daily [Active]; tramadol 100 mg Oral Tb24 1 tab once daily [Active]; - PMHx: 17:14 Hypertension; hb - PSHx: 17:14 Cholecystectomy; hb - Immunization history:: Adult Immunizations up to date. - Social history:: Smoking status: Patient/guardian denies using tobacco. - Ebola Screening: : No symptoms or risks identified at this time. Screenin:12 Abuse screen: Denies threats or abuse. Nutritional screening: No deficits noted. tr5 Tuberculosis screening: No symptoms or risk factors identified. Fall Risk None identified. Assessment: 17:12 General: Appears uncomfortable, Behavior is calm, cooperative, appropriate for age. tr5 Pain: Complains of pain in back and chest Pain radiates to left arm. Neuro: Level of Consciousness is awake, alert, obeys commands, Oriented to person, place, time, Shank Skinner are equal bilaterally. Cardiovascular: Heart tones present Capillary refill < 3 seconds. Respiratory: Airway is patent Respiratory effort is even, unlabored, Respiratory pattern is regular, symmetrical. GI: No signs and/or symptoms were reported involving the gastrointestinal system. : No signs and/or symptoms were reported regarding the genitourinary system. EENT: No signs and/or symptoms were reported regarding the EENT system. Derm: No signs and/or symptoms reported regarding the dermatologic system. Vital Signs: 17:15 BP 147 / 79; Pulse 82; Resp 20; Temp 97.1; Pulse Ox 100% on R/A; Weight 113.4 kg; hb Height 5 ft. 5 in. (165.10 cm); Pain 9/10; 17:15 Body Mass Index 41.60 (113.40 kg, 165.10 cm) hb ED Course: 17:07 Patient arrived in ED. mr 17:12 Patient has correct armband on for positive identification. Pulse ox on. NIBP on. tr5 17:12 No provider procedures requiring assistance completed. Patient did not have IV access tr5 during this emergency room visit. Patient maintains SpO2 saturation greater than 95% on room air. 17:13 Triage completed. hb 17:15 Arm band placed on. hb 17:18 [facility]C [facility]. kb 17:18 Oswaldo Hairston MD is Attending Physician. kb 17:18 Preston Barrera, SAWYER is Primary Nurse. tr5 17:46 Chest Pa And Lat (2 Views) XRAY In Process Unspecified. EDMS Administered Medications: 18:15 Drug: TORadol 30 mg Route: IM; Site: right gluteus; mg2 18:50 Follow up: Response: No adverse reaction; Marked relief of symptoms mg2 18:34 Drug: Flexeril 10 mg Route: PO; tr5 18:49 Follow up: Response: No adverse reaction; Marked relief of symptoms mg2 Outcome: 18:30 Discharge ordered by . kb 18:50 Discharged to home ambulatory, with family. mg2 18:50 Condition: stable 18:50 Discharge instructions given to patient, family, Instructed on discharge instructions, follow up and referral plans. medication usage, Demonstrated understanding of instructions, follow-up care, medications, Prescriptions given X 2. 18:51 Patient left the ED. mg2 Signatures: Dispatcher [employer] EDMS HerberthJane, FACING MACHINE OPERATOR-C FACING MACHINE OPERATOR-Praveenb Olive Schaeffer mr Jessenia Crawford, RN RN Db Narvaez RN RN [facility] [place] Preston Barrera RN RN tr5 Corrections: (The following items were deleted from the chart) 17:15 17:12 Presenting complaint: Right upper back pain that radiates to right upper chest x hb 1 week. hb 17:15 17:12 Acuity: KARINA 3 hb hb 22:50 22:45 General: Appears tr5 tr5
--- NOTE | 2019-07-07 18:31 | EDPHYS ---
Physician Documentation [facility] Name: Danii Linares Age: 48 yrs Sex: Female : 1970 Arrival Date: 07/07/2019 Time: 17:07 Bed 27 Private MD: ED Physician Oswaldo Hairston HPI: 07/07 17:28 This 48 yrs old Female presents to ER via Ambulatory with complaints of Chest kb Pain, Back Pain. 17:30 The patient presents with pain that is acute, with no known mechanism of injury, and kb tenderness. The symptoms are located in the right scapular area. Onset: The symptoms/episode began/occurred 1 week(s) ago. The pain radiates to the anterior aspect of right upper chest. Associated signs and symptoms: The patient has no apparent associated signs or symptoms. The problem was sustained from unknown cause. Modifying factors: The patient symptoms are alleviated by nothing, the patient symptoms are aggravated by any movement, mopping, sweeping, lifting right arm. Severity of symptoms: At their worst the symptoms were moderate, in the emergency department the symptoms are unchanged. The patient has not experienced similar symptoms in the past. The patient has not recently seen a physician. Pt reports she has had pain to right scapular area for a week that radiates to right chest. Reports pain is worse with movement, twisting, lifting right arm. Moderate tenderness to palpation around right scapula. Historical: - Allergies: 17:14 Codeine; hb - Home Meds: 17:14 atenolol 25 mg Oral tab 1 tab 2 times per day [Active]; hydrochlorothiazide 25 mg Oral hb tab 1 tab once daily [Active]; Prilosec 20 mg Oral cpDR 1 cap once daily [Active]; tramadol 100 mg Oral Tb24 1 tab once daily [Active]; - PMHx: 17:14 Hypertension; hb - PSHx: 17:14 Cholecystectomy; hb - Immunization history:: Adult Immunizations up to date. - Social history:: Smoking status: Patient/guardian denies using tobacco. - Ebola Screening: : No symptoms or risks identified at this time. ROS: 17:27 Constitutional: Negative for fever, chills, and weight loss, ENT: Negative for injury, kb pain, and discharge, Neck: Negative for injury, pain, and swelling, Respiratory: Negative for shortness of breath, cough, wheezing, and pleuritic chest pain, Abdomen/GI: Negative for abdominal pain, nausea, vomiting, diarrhea, and constipation, : Negative for injury, bleeding, discharge, and swelling, MS/Extremity: Negative for injury and deformity, Skin: Negative for injury, rash, and discoloration, Neuro: Negative for headache, weakness, numbness, tingling, and seizure. 17:27 Cardiovascular: Positive for chest pain, with movement, of the anterior aspect of right upper chest. 17:27 Back: Positive for pain at rest, pain with movement, radiated pain, of the right scapular area. Exam: 17:27 Constitutional: This is a well developed, well nourished patient who is awake, alert, kb and in no acute distress. Head/Face: Normocephalic, atraumatic. ENT: Nares patent. No nasal discharge, no septal abnormalities noted. Tympanic membranes are normal and external auditory canals are clear. Oropharynx with no redness, swelling, or masses, exudates, or evidence of obstruction, uvula midline. Mucous membranes moist. Neck: Trachea midline, no thyromegaly or masses palpated, and no cervical lymphadenopathy. Supple, full range of motion without nuchal rigidity, or vertebral point tenderness. No Meningismus. Chest/axilla: Normal chest wall appearance and motion. Nontender with no deformity. No lesions are appreciated. Cardiovascular: Regular rate and rhythm with a normal S1 and S2. No gallops, murmurs, or rubs. Normal PMI, no JVD. No pulse deficits. Respiratory: Lungs have equal breath sounds bilaterally, clear to auscultation and percussion. No rales, rhonchi or wheezes noted. No increased work of breathing, no retractions or nasal flaring. Abdomen/GI: Soft, non-tender, with normal bowel sounds. No distension or tympany. No guarding or rebound. No evidence of tenderness throughout. Skin: Warm, dry with normal turgor. Normal color with no rashes, no lesions, and no evidence of cellulitis. MS/ Extremity: Pulses equal, no cyanosis. Neurovascular intact. Full, normal range of motion. Neuro: Awake and alert, GCS 15, oriented to person, place, time, and situation. Cranial nerves II-XII grossly intact. Motor strength 5/5 in all extremities. Sensory grossly intact. Cerebellar exam normal. Normal gait. 17:27 Back: pain, that is moderate, of the right scapular area, ROM is painful, with all movement, normal spinal alignment noted, tenderness around right scapula. 17:48 ECG was reviewed by the Attending Physician. kb Vital Signs: 17:15 BP 147 / 79; Pulse 82; Resp 20; Temp 97.1; Pulse Ox 100% on R/A; Weight 113.4 kg; hb Height 5 ft. 5 in. (165.10 cm); Pain 9/10; 17:15 Body Mass Index 41.60 (113.40 kg, 165.10 cm) hb MDM: 17:18 Patient medically screened. kb 17:28 Data reviewed: vital signs, nurses notes. Data interpreted: Pulse oximetry: on room air kb is 100 %. Interpretation: normal. 18:06 Counseling: I had a detailed discussion with the patient and/or guardian regarding: the kb historical points, exam findings, and any diagnostic results supporting the discharge/admit diagnosis, radiology results, the need for outpatient follow up, a family practitioner, to return to the emergency department if symptoms worsen or persist or if there are any questions or concerns that arise at home. 12 17:24 Order name: Chest Pa And Lat (2 Views) XRAY; Complete Time: 17:59 kb 07/07 17:24 Order name: EKG; Complete Time: 17:25 kb 07/07 17:24 Order name: EKG - Nurse/Tech; Complete Time: 17:46 kb EC:48 Rate is 70 beats/min. Rhythm is regular, Normal Sinus Rhythm. QRS [place] is Normal. [place] kb interval is normal at 150 msec. QRS interval is normal at 84 msec. QT interval is normal at 442 msec. Clinical impression: Normal ECG. Interpreted by me. Reviewed by me. Administered Medications: 18:15 Drug: TORadol 30 mg Route: IM; Site: right gluteus; mg2 18:50 Follow up: Response: No adverse reaction; Marked relief of symptoms mg2 18:34 Drug: Flexeril 10 mg Route: PO; tr5 18:49 Follow up: Response: No adverse reaction; Marked relief of symptoms mg2 Disposition: 07/08 07:20 Co-signature as Attending Physician, Oswaldo Hairston MD I agree with the assessment and kdr plan of care. Disposition: 07/07/19 18:30 Discharged to Home. Impression: Myalgia, Upper back pain - right scapular area. - Condition is Stable. - Discharge Instructions: Musculoskeletal Pain. - Prescriptions for Cyclobenzaprine 10 mg Oral Tablet - take 1 tablet by ORAL route every 8 hours As needed; 21 tablet. Diclofenac Sodium 75 mg Oral Tablet, Delayed Release (E.C.) - take 1 tablet by ORAL route 2 times per day As needed; 30 tablet. - Medication Reconciliation Form, Thank You Letter, Antibiotic Education, Prescription Opioid Use form. - Follow up: Emergency Department; When: As needed; Reason: Worsening of condition. Follow up: Private Physician; When: 2 - 3 days; Reason: Recheck today's complaints, Continuance of care, Re-evaluation by your physician. Signatures: Dispatcher [employer] EDMS Jane Kevin, EXPEDITER SERVICE ORDER-C EXPEDITER SERVICE ORDER-CkOswaldo Elise MD MD [facility] Jessenia Crawford RN RN Db Narvaez RN RN [facility] [place] Preston Barrera RN RN tr5 Corrections: (The following items were deleted from the chart) 07/07 18:51 18:30 07/07/2019 18:30 Discharged to Home. Impression: Myalgia; Upper back pain - right mg2 scapular area. Condition is Stable. Forms are Medication Reconciliation Form, Thank You Letter, Antibiotic Education, Prescription Opioid Use. Follow up: Emergency Department; When: As needed; Reason: Worsening of condition. Follow up: Private Physician; When: 2 - 3 days; Reason: Recheck today's complaints, Continuance of care, Re-evaluation by your physician. kb
[2019-07-08 05:42] VITALS: BP 147/79; TEMP 97.1; O2SAT 100
--- NOTE | 2019-07-08 08:23 | EKG ---
Test Date: 2019-07-07 Test Time: 17:36:45 Pest Control Operator: TR MEASUREMENT RESULTS: Intervals: Rate: 70 IL: 150 QRSD: 84 QT: 410 QTc: 442 Joshua: P: 22 IL: 150 QRS: 31 T: 45 INTERPRETIVE STATEMENTS: Normal sinus rhythm Normal ECG Compared to ECG 08/24/2018 15:16:11 T-wave abnormality no longer present Electronically Signed On 07-08-19 08:22:06 BRANCH GENERAL MANAGER by Ben Martinez
== END 2019-07-07 18:51 | disposition home or self-care (01) ==
LOC: ER 17:03
DX: M79.10 Myalgia, unspecified site (principal); M54.6 Pain in thoracic spine; I10 Essential (primary) hypertension; Z88.5 Allergy status to narcotic agent
CPT/HCPCS: 71046; 93005; 96372; 99284

== ENCOUNTER 2025-03-23 18:24 | Emergency (ER) | payer OTHER ==
--- NOTE | 2025-03-23 22:18 | RAD REPORT ---
Procedure: Chest Single View HISTORY: Cough COMPARISON: 2019 FINDINGS: The lungs appear clear of acute infiltrate. Calcified granuloma within the right lung No significant pleural effusion noted. The heart is normal size. IMPRESSION: No acute abnormality is displayed.
[2025-03-23 22:33] LABS: ALT/SGPT 39.0 U/L (13-56); AST/SGOT 18.0 U/L (15-37); Albumin 3.5 g/dL (3.4-5.0); Albumin/Globulin Ratio 0.7 (1.1-1.8); Alkaline Phosphatase 83.0 U/L (45-117); Anion Gap 9.6 mEq/L (5.0-15.0); BUN Blood Urea Nitrogen 9.0 mg/dL (7-18); Globulin 4.9 g/dL (2.3-3.5); Glucose Level 176.0 mg/dL (74-106); Potassium 3.6 mEq/L (3.5-5.1)
[2025-03-23 23:01] LABS: Absolute Lymphocytes (CBC) 1.8 K/uL (0.7-4.9); Hematocrit 45.1 % (36.0-45.0); Hemoglobin 15.2 g/dL (12.0-15.0); MCH 27.7 pg (27.0-35.0); MCHC 33.6 g/dL (32.0-36.0); MCV 82.4 fL (80-100); MPV 9.4 fL (7.6-11.3); Nucleated RBC Absolute Count 0.0 (0-0); Nucleated Red Blood Cells % 0.1 % (0-0); RBC Red Blood Cell Count 5.48 M/uL (3.86-4.86); White Blood Count 10.80 thou/uL (4.3-10.9)
[2025-03-23] MEDS ORDERED: NA CHLORIDE 0.9% 500 ML ONE (23:27)
--- NOTE | 2025-03-24 00:41 | ER ---
Nurse's Notes [facility] Name: Danii Linares Age: 54 yrs Sex: Female : 1970 Arrival Date: 03/23/2025 Time: 18:24 Bed 17 Private MD: Diagnosis: Cough Presentation: 03/23 18:42 Chief complaint: Patient's son or daughter states: yesterday they did a CXR and there iw was possible pneumonia, was referred to ER for Ct, has had a cold for the past month. Coronavirus screen: Client presents with at least one sign or symptom that may indicate coronavirus-19. Ebola Screen: No symptoms or risks identified at this time. Initial Sepsis Screen: Does the patient meet any 2 criteria? No. Patient's initial sepsis screen is negative. Does the patient have a suspected source of infection? No. Patient's initial sepsis screen is negative. Risk Assessment: Do you want to hurt yourself or someone else? Patient reports no desire to harm self or others. Onset of symptoms was February 25, 2025. 18:42 Method Of Arrival: Ambulatory iw 18:42 Acuity: KARINA 3 iw Historical: - Allergies: 18:44 Codeine; iw - PMHx: 18:44 Hypertension; Gout; GERD; iw - PSHx: 18:44 Cholecystectomy; iw - Immunization history:: Adult Immunizations up to date. - Infectious Disease History:: Denies. - Social history:: Smoking status: Patient denies any tobacco usage or history of. Screenin:19 [facility] ED Fall Risk Assessment (Adult) History of falling in the last 3 months, tb4 including since admission No falls in past 3 months (0 pts) Confusion or Disorientation No (0 pts) Intoxicated or Sedated No (0 pts) Impaired Gait No (0 pts) Mobility Assist Device Used No (0 pt) Altered Elimination No (0 pt) Score/Fall Risk Level 0 - 2 = Low Risk Oriented to surroundings, Maintained a safe environment. Abuse screen: Denies threats or abuse. Denies injuries from another. Nutritional screening: No deficits noted. Tuberculosis screening: No symptoms or risk factors identified. Assessment: 20:05 General: Appears in no apparent distress. Behavior is calm, cooperative. Pain: tb4 Complains of pain in back Pain does not radiate. Pain currently is 6 out of 10 on a pain scale. Quality of pain is described as sharp, Pain began suddenly, 1 day ago. Is continuous, Alleviated by nothing. Neuro: Level of Consciousness is awake, alert, obeys commands, Oriented to person, place, time, situation, Supervisor Testing are equal bilaterally Moves all extremities. Full function Gait is steady, Speech is normal, Facial symmetry appears normal. Respiratory: No deficits noted. Airway is patent Respiratory effort is even, unlabored, Respiratory pattern is regular, symmetrical. GI: No signs and/or symptoms were reported involving the gastrointestinal system. : No signs and/or symptoms were reported regarding the genitourinary system. EENT: No signs and/or symptoms were reported regarding the EENT system. Derm: No signs and/or symptoms reported regarding the dermatologic system. Skin is intact, is healthy with good turgor, Skin is dry, Skin is normal, Skin temperature is warm. Musculoskeletal: No signs and/or symptoms reported regarding the musculoskeletal system. Circulation, motion, and sensation intact. Range of motion: intact in all extremities. 03/24 00:55 Reassessment: Patient states feeling better. Patient states symptoms have improved. tb4 General: Appears in no apparent distress. Behavior is calm, cooperative. Pain: Complains of pain in lumbar area, left low back and right low back Pain does not radiate. Pain currently is 4 out of 10 on a pain scale. Quality of pain is described as pressure. Neuro: Level of Consciousness is awake, alert, obeys commands, Oriented to person, place, time, situation, Supervisor Testing are equal bilaterally Moves all extremities. Full function Gait is steady, Speech is normal, Facial symmetry appears normal. Respiratory: Airway is patent Respiratory effort is even, unlabored, Respiratory pattern is regular, symmetrical. Musculoskeletal: Circulation, motion, and sensation intact. Range of motion: intact in all extremities. Vital Signs: 03/23 18:42 BP 159 / 67; Pulse 98; Resp 18; Temp 98.9; Pulse Ox 94% on R/A; Weight 113.4 kg; Height iw 5 ft. 2 in. ; 20:19 BP 131 / 68; Pulse 91; Resp 20; Pulse Ox 98% on R/A; Weight 117.93 kg; Height 5 ft. 2 tb4 in. ; Pain 6/10; 21:30 BP 131 / 63; Pulse 86; Resp 20; Pulse Ox 100% on R/A; tb4 22:05 BP 131 / 71; Pulse 76; Resp 18; Temp 97.4(O); Pulse Ox 97% on R/A; tb4 23:01 BP 126 / 69; Pulse 92; Resp 18; Pulse Ox 100% on R/A; tb4 03/24 00:00 BP 133 / 76; Pulse 90; Resp 20; Pulse Ox 98% on R/A; tb4 00:54 BP 124 / 85; Pulse 80; Resp 18; Pulse Ox 99% on R/A; Pain 4/10; tb4 03/23 20:19 Body Mass Index 47.55 (117.93 kg, 157.48 cm) tb4 20:19 Pain Scale: Adult tb4 00:54 Pain Scale: Adult tb4 ED Course: 03/23 18:28 Patient arrived in ED. cj3 18:29 Jane Kevin FNP-C is [facility]. kb 18:29 Aime Shoemaker MD is Attending Physician. kb 18:43 Triage completed. iw 18:43 Arm band placed on. iw 19:04 Chest Single View XRAY In Process Unspecified. EDMS 20:19 Patient has correct armband on for positive identification. Bed in low position. Call tb4 light in reach. Side rails up X 1. Adult w/ patient. Client placed on continuous cardiac and pulse oximetry monitoring. NIBP monitoring applied. Door closed. 20:19 No provider procedures requiring assistance completed. tb4 20:44 Radiology exam delayed due to lab results not completed at this time. (BUN/Creatinine) nj IV insertion attempt and/or patient not having appropriate IV at this time. 22:10 Initial lab(s) drawn, by wa, sent to lab. Inserted saline lock: 22 gauge in left me1 antecubital area, using aseptic technique. Blood collected. Flushed with 10 mL NS. 23:16 CT Chest For PE Angio In Process Unspecified. EDMS 03/24 00:40 Aime Shoemaker MD is Referral Physician. kb 01:20 IV discontinued, intact, bleeding controlled, No redness/swelling at site. Pressure tb4 dressing applied. 01:21 Provided Education on: Follow up with primary care . tb4 Administered Medications: 03/23 23:50 Drug: NS 0.9% IV 500 ml 500 ml IV at 1 bolus once; to be given as a bolus over 30 tb4 minutes Volume: 500 ml; Route: IV; Rate: 1 bolus; Site: left antecubital; 03/24 00:48 Follow up: Response: No adverse reaction; IV Status: Completed infusion tb4 Medication: 03/23 20:19 VIS not applicable for this client. tb4 Outcome: 03/24 00:40 Discharge ordered by . jennifer 01:20 Discharged to home ambulatory, tb4 01:20 Condition: stable 01:20 Discharge instructions given to patient, family, Instructed on discharge instructions, follow up and referral plans. Demonstrated understanding of instructions, follow-up care, 01:51 Patient left the ED. tb4 Signatures: Dispatcher [employer] EDJane Ordonez, STAMP PRESS OPERATOR-C STAMP PRESS OPERATOR-Ckb Safia Meyer, RN Paramjit Conde Michelle, RN RN me1 Mary Ann Allen 3 Monica Arriola RN RN tb4
--- NOTE | 2025-03-24 00:41 | EDPHYS ---
Physician Documentation [facility] Name: Danii Linares Age: 54 yrs Sex: Female : 1970 Arrival Date: 03/23/2025 Time: 18:24 Bed 17 Private MD: ED Physician Aime Shomeaker HPI: 03/23 18:30 This 54 yrs old Female presents to ER via Unassigned with complaints of kb Abnormal Lab Results. 18:30 Pt is a 54 year old female who presents for CT scan of chest. Daughter states pt has kb had cough, congestion for about a month, has completed 2 rounds of antibiotics without relief. STates she went to PCP for symptoms yesterday and had a chest xray done. PCP called today and recommended she come to the ER for a CT chest because she had white patches on her xray and they couldn't confirm if it was pneumonia or not. . Historical: - Allergies: 18:44 Codeine; iw - PMHx: 18:44 Hypertension; Gout; GERD; iw - PSHx: 18:44 Cholecystectomy; iw - Immunization history:: Adult Immunizations up to date. - Infectious Disease History:: Denies. - Social history:: Smoking status: Patient denies any tobacco usage or history of. ROS: 18:32 Constitutional: As per HPI kb Exam: 18:32 Constitutional: This is a well developed, well nourished patient who is awake, alert, kb and in no acute distress. Head/Face: Normocephalic, atraumatic. ENT: Moist Mucous membranes Cardiovascular: Regular rate Respiratory: Respirations even and unlabored. No increased work of breathing. Talking in full sentences Abdomen/GI: Soft, non-tender. No distention Skin: Warm, dry with normal turgor. Normal color. MS/ Extremity: Pulses equal, no cyanosis. Neurovascular intact. Full, normal range of motion. Neuro: Awake and alert, GCS 15, oriented to person, place, time, and situation. Vital Signs: 18:42 BP 159 / 67; Pulse 98; Resp 18; Temp 98.9; Pulse Ox 94% on R/A; Weight 113.4 kg; Height iw 5 ft. 2 in. ; 20:19 BP 131 / 68; Pulse 91; Resp 20; Pulse Ox 98% on R/A; Weight 117.93 kg; Height 5 ft. 2 tb4 in. ; Pain 6/10; 21:30 BP 131 / 63; Pulse 86; Resp 20; Pulse Ox 100% on R/A; tb4 22:05 BP 131 / 71; Pulse 76; Resp 18; Temp 97.4(O); Pulse Ox 97% on R/A; tb4 23:01 BP 126 / 69; Pulse 92; Resp 18; Pulse Ox 100% on R/A; tb4 03/24 00:00 BP 133 / 76; Pulse 90; Resp 20; Pulse Ox 98% on R/A; tb4 00:54 BP 124 / 85; Pulse 80; Resp 18; Pulse Ox 99% on R/A; Pain 4/10; tb4 03/23 20:19 Body Mass Index 47.55 (117.93 kg, 157.48 cm) tb4 20:19 Pain Scale: Adult tb4 00:54 Pain Scale: Adult tb4 MDM: 03/23 18:29 Medical Screening Exam initiated kb 03/24 00:32 Differential diagnosis: pneumonia, PE, bronchitis. Data reviewed: vital signs, nurses kb notes. I considered the following discharge prescriptions or medication management in the emergency department I discussed and recommended Over The Counter medications, Antibiotics: At this time antibiotics are not recommended. Independent interpretation of the following test(s) in the Emergency Department X-Ray: My interpretation is no pneumonia on CXR. Historians other than the Patient: Daughter/Son: daughter. Counseling: I had a detailed discussion with the patient and/or guardian regarding the historical points, exam findings, and any diagnostic results supporting the discharge/admit diagnosis, lab results, radiology results, the need for outpatient follow up, a family practitioner, to return to the emergency department if symptoms worsen or persist or if there are any questions or concerns that arise at home. 03/23 18:33 Order name: CBC with Diff; Complete Time: 23:07 kb 03/23 18:33 Order name: CMP; Complete Time: 22:37 kb 03/23 18:33 Order name: Chest Single View XRAY; Complete Time: 22:21 kb 03/23 18:33 Order name: CT Chest For PE Angio kb 03/23 18:33 Order name: IV Start; Complete Time: 22:17 kb Administered Medications: 03/23 23:50 Drug: NS 0.9% IV 500 ml 500 ml IV at 1 bolus once; to be given as a bolus over 30 tb4 minutes Volume: 500 ml; Route: IV; Rate: 1 bolus; Site: left antecubital; 03/24 00:48 Follow up: Response: No adverse reaction; IV Status: Completed infusion tb4 Disposition Summary: 03/24/25 00:40 Discharge Ordered Notes: Location: Home kb Condition: Stable kb Diagnosis - Cough kb Followup: kb - With: Emergency Department - When: As needed - Reason: Worsening of condition Followup: kb - With: Private Physician - When: 2 - 3 days - Reason: Recheck today's complaints, Continuance of care, Re-evaluation by your physician Discharge Instructions: - Discharge Summary Sheet kb - Cough, Adult, [id number] kb Forms: - Medication Reconciliation Form kb - Antibiotic Education kb - Prescription Opioid Use kb - Patient Portal Instructions kb - Leadership Thank You Letter kb Addendum: 03/25/2025 13:34 Co-signature as Attending Physician, Aime Shoemaker MD I agree with the assessment and c abrams plan of care. Signatures: Dispatcher [employer] [facility] Jane Kevin, PACKAGING TECH-C PACKAGING TECH-Ckb Aime Shoemaker MD MD cha Williams, Irene, RN RN iw Monica Arriola, SAWYER RN tb4 Corrections: (The following items were deleted from the chart) 03/23 18:34 18:34 CBC+H.LAB.BRZ ordered. [facility] 18:34 18:34 COMPREHENSIVE METABOLIC PANEL+C.LAB.BRZ ordered. [facility] 18:34 18:34 Chest Single View+RAD.RAD.BRZ ordered. [facility] 18:34 18:34 Chest For PE Angio+CT.RAD.BRZ ordered. [facility] 18:36 18:32 Constitutional: This is a well developed, well nourished patient who is awake, kb alert, and in no acute distress. Head/Face: Normocephalic, atraumatic. ENT: Moist Mucous membranes Cardiovascular: Regular rate Abdomen/GI: Soft, non-tender. No distention Skin: Warm, dry with normal turgor. Normal color. MS/ Extremity: Pulses equal, no cyanosis. Neurovascular intact. Full, normal range of motion. Neuro: Awake and alert, GCS 15, oriented to person, place, time, and situation. kb
--- NOTE | 2025-03-24 01:53 | RAD REPORT ---
CLINICAL HISTORY: COUGH. COMPARISON: None. TECHNIQUE: CTA of the chest was performed following intravenous administration of iodinated contrast. Axial soft tissue and lung window, and coronal and sagittal soft tissue window reconstructions were created and sent to PACS. 3D postprocessing was performed on an independent workstation, with images sent to PACS for subsequen t review. This exam was performed according to our departmental dose-optimization program, which includes autom ated exposure control, adjustment of the mA and/or kV according to patient size and/or use of iterative reconstruction technique. FINDINGS: Mild motion degradation. Vascular: Suboptimal evaluation of the distal pulmonary artery is due to contrast timing and motion d egradation streak artifact. No CT evidence of central acute pulmonary thromboembolism. No evidence of aortic aneurysm or dissection. Mildly prominent central pulmonary arteries, which can be seen with pulmonary arterial hypertension. Lungs and pleura: No pulmonary consolidation. No pleural effusion. No pneumothorax. Small calcified g ranuloma in the right upper lobe. Mediastinum and neck: No mediastinal lymphadenopathy by CT size criteria. Unremarkable appearance of the thyroid gland. Cardiac: No cardiomegaly or pericardial effusion. Abdomen: Marked diffuse hepatic steatosis. Musculoskeletal: No concerning osseous abnormality. IMPRESSION: 1. No CTA evidence of central acute pulmonary thromboembolism. 2. Suboptimal evaluation of the distal pulmonary artery is due to contrast timing and motion degrad ation streak artifact. 3. No acute findings in the chest. 4. Mildly prominent central pulmonary arteries, which can be seen with pulmonary arterial hypertens ion. 5. Hepatic steatosis. Electronically signed by: Loren Husain MD 03/23/2025 11:39 PM CDT Due to temporary technical issues with the PACS/[employer] reporting system, reports are being maria guadalupe d by the in-house radiologist without review as a courtesy to ensure prompt reporting the interpreting radiologist is fully responsible for the content of the report. Transcribed Date/Time: 03/24/2025 1:53 AM
[2025-03-24 13:01] VITALS: TEMP 97.4
[2025-03-24 13:07] VITALS: BP 124/85; O2SAT 99
== END 2025-03-24 01:51 | disposition home or self-care (01) ==
LOC: ER 18:24
DX: R05.9 Cough, unspecified (principal)
CPT/HCPCS: 85025; 36415; 80053; 71275; 71045; 96360; 99284; Q9967; J7040